=== PATIENT | male | born 1970 | race Caucasian/White ===

== ENCOUNTER 2020-04-25 11:12 | Emergency (ER) | payer OTHER ==
[2020-04-25 11:30] VITALS: BMI 25.1
--- NOTE | 2020-04-25 11:31 | PDOC ---
Rapid Medical Evaluation Chief Complaint: Shortness of Breath Time Seen by Provider: 04/25/20 11:25 Medical Evaluation: Allergies Allergy/AdvReac Type Severity Reaction Status Date / Time No Known Drug Allergies Allergy Verified 02/20/20 12:17 04/25/20 11:29 I have performed a brief in-person evaluation of this patient. The patient presents with a chief complaint of: Sob mostly at rest for 2 weeks. No CP, diaphoresis, n/v, cough, f/c. Has similar sxs 2 years ago and had neg stress test in CT. H/o DM, HTN, GERD Pertinent physical exam findings:BP 164/101, NAD I have ordered the following:ekg/cxr/labs The patient will proceed to the ED for further evaluation Discharge Disposition - Diagnosis SOB (shortness of breath) - Referrals - Patient Instructions - Post Discharge Activity
[2020-04-25 12:08] LABS: BASO % 0.8 % (0-2.0); EOS % 2.9 % (0-4.5); HEMATOCRIT 45.8 % (35.4-49); LYMPH % 34.7 % (8-40); MCH 29.4 pg (25.7-33.7); MCHC 32.7 g/dl (32.0-35.9); MEAN CELL VOLUME 89.9 fl (80-96); MEAN PLT VOLUME 9.2 fl (7.5-11.1); MONO % 8.2 % (3.8-10.2); NEUT % 53.4 % (42.8-82.8); PLATELET COUNT 231 K/MM3 (134-434); RDW 13.4 % (11.9-15.9); WHITE BLOOD COUNT 6.3 K/mm3 (4.0-10.0)
[2020-04-25 12:37] LABS: ALBUMIN 4.2 g/dl (3.4-5.0); ALK PHOS 72 U/L (45-117); ANION GAP 8 MMOL/L (8-16); BILIRUBIN,TOTAL 0.4 mg/dL (0.2-1); BLOOD UREA NITROGEN 15.5 mg/dL (7-18); CALCIUM 9.2 mg/dL (8.5-10.1); CHLORIDE 106 mmol/L (98-107); CO2 26 mmol/L (21-32); GLUCOSE,RANDOM 185 mg/dL (74-106); POTASSIUM 4.3 mmol/L (3.5-5.1); SGOT/AST 15 U/L (15-37); SGPT/ALT 28 U/L (13-61); SODIUM 140 mmol/L (136-145); TOT PROT 7.7 g/dl (6.4-8.2)
[2020-04-25] MEDS ORDERED: amLODIPine BESYLATE 5 MG TABLET (FP) PO ONE (12:38)
[2020-04-25] MEDS ORDERED: amLODIPine BESYLATE 5 MG TABLET (FP) ONE (12:54)
--- NOTE | 2020-04-25 13:55 | PDOC ---
Documentation entered by Gilbert Worley SCRIBE, acting as scribe for Gerardo Finnegan MD. Gerardo Finnegan MD: This documentation has been prepared by the Tate blanchard Nirvannie, SCRIBE, under my direction and personally reviewed by me in its entirety. I confirm that the documentation accurately reflects all work, treatment, procedures, and medical decision making performed by me. History of Present Illness - General Chief Complaint: Shortness of Breath Stated Complaint: SHORTNESS OF BREATH Time Seen by Provider: 04/25/20 11:25 History Source: Patient Exam Limitations: No Limitations - History of Present Illness Initial Comments: 04/25/20 12:51 The patient is a 50 year old male with a significant past medical history of hypertension (changed medications 2 days ago), diabetes, hyperlipidemia who presents to the emergency department with 2 weeks of progressively worsening shortness of breath with minimal exertion and associated orthopnea and generalized fatigue. As per patient, his symptoms onset two weeks ago and occur with minimal exertion, he notes that he normally sleeps lying flat but recently needed to sleep upright. Patient admits to a strong family history of secondary to HI. He denies any fever, chills, recent sick contacts, or recent travel. Allergies: NKDA Family History: Paternal secondary to HI. Multiple cousins secondary to HI in the 50s. Past History - Medical History Allergies/Adverse Reactions: Allergies Allergy/AdvReac Type Severity Reaction Status Date / Time No Known Drug Allergies Allergy Verified 04/25/20 11:30 Home Medications: Ambulatory Orders Glipizide [Glucotrol] 5 mg PO BID 02/01/13 Losartan Potassium [Cozaar -] 50 mg PO DAILY 02/01/13 Multivitamin [Multivitamins] 1 each PO DAILY 02/01/13 Anemia: No Asthma: Yes (SEASONAL) Cancer: No Cardiac Disorders: Yes (murmur) CVA: No COPD: No CHF: No Dementia: No Diabetes: Yes (NIDDM) GI Disorders: Yes (reflux) Disorders: No HTN: Yes Hypercholesterolemia: Yes Liver Disease: No Seizures: No Thyroid Disease: No - Surgical History Abdominal Surgery: No Appendectomy: No Cardiac Surgery: No Cholecystectomy: No Lung Surgery: No Neurologic Surgery: No Orthopedic Surgery: Yes (CELLULITIS LEFT LEG WITH ? OSTEO) - Psycho-Social/Smoking History Smoking History: Never smoked Have you smoked in the past 12 months: No - Substance Abuse Hx (Audit-C & DAST Scrn) How often the patient has a drink containing alcohol: Never Score: In Men: 4 or > Positive; In Women: 3 or > Positive: 0 Screen Result (Pos requires Nsg. Audit-10AR): Negative Review of Systems - Review of Systems Able to Perform ROS?: Yes Comments:: 04/25/20 12:52 CONSTITUTIONAL: No fever, no chills, + fatigue EYES: No visual changes ENT: No ear pain, no sore throat CARDIOVASCULAR: No chest pain, no palpitations RESPIRATORY: No cough, +SOB GI: No abdominal pain, no nausea, no vomiting, no constipation, no diarrhea GENITOURINARY: No dysuria, no frequency, no hematuria MUSKULOSKELETAL: No back pain, no joint pain, no myalgias SKIN: No rash NEURO: No headache *Physical Exam - Vital Signs Last Vital Signs Temp Pulse Resp BP Pulse Ox 98.6 F 58 L 18 164/101 H 100 04/25/20 11:28 04/25/20 11:28 04/25/20 11:28 04/25/20 11:28 04/25/20 11:28 - Physical Exam 04/25/20 13:55 CONSTITUTIONAL: Well-appearing; well-nourished; in no apparent distress HEAD: Normocephalic; atraumatic EYES: PERRL; EOM intact ENMT: External appears normal; normal oropharynx NECK: Supple; non-tender; no cervical lymphadenopathy CARD: Normal S1, S2; no murmurs, rubs, or gallops RESP: Normal chest excursion with respiration; breath sounds clear and equal bilaterally; no wheezes, rhonchi, or rales ABD: Soft, non-distended; non-tender; no palpable organomegaly, no palpable hernias EXT: Normal ROM in all four extremities; non-tender to palpation; distal pulses intact SKIN: Warm, dry, no rash NEURO: No focal neurological deficiencies. Heart Score/ECG Review - History History: Moderately suspicious - Electrocardiogram EKG: Non specific repolarization disturbance - Age Age: 45-65 - Risk Factors Risk Factors Heart Score: Yes Hx Hypercholesterolemia, Yes Hx Hypertension, Yes Hx Diabetes, Yes Positive family hx of cardiac disease Based on the list above the patient has:: >/=3 risk factors or Hx atherosclero tic disease - Troponin Troponin: </= normal limit - Score Heart Score - Total: 5 #1 04/25/20 13:41 EKG performed at: 25 April 2020 at 12:27:16 Vent Rate: 53 bpm WA interval: 170 ms QRS duration: 126 ms QT/QTc: 460/431 ms P-R-T axes: 24 -42 -62 Sinus bradycardia Left axis deviation Right bundle branch block Voltage criteria for left ventricular hypertrophy Cannot rule out septal infarct, age undetermined T wave abnormality, consider inferolateral ischemia Abnormal ECG ED Treatment Course - LABORATORY CBC & Chemistry Diagram: 04/25/20 11:46 04/25/20 11:46 Medical Decision Making - Medical Decision Making 04/25/20 13:53 Patient is a 50-year-old male with history of diabetes, hypertension, strong family history of coronary artery disease who presents with worsening dyspnea, at rest and with minimal exertion for the past several weeks associated with PND and orthopnea. In the ER, patient is awake and alert, nontoxic-appearing. Initially hypertensive. Patient treated with p.o. Norvasc-5 mg. Initial EKG shows normal sinus rhythm, with LVH, left axis deviation, and inverted T waves in 2 3 and aVF which are new when compared to an EKG from December 2019. There are also noted persistent T wave inversions in V3 through V6. Chest x-ray reveals no evidence of infiltrate or effusion, elevated left hemidiaphragm is noted. Will rule out PE with CTA. Will administer aspirin and admit for ACS. 04/25/20 15:59 On reassessment, patient wishes to sign out AMA. Patient understands that he is at high risk of adverse event from acute coronary syndrome. I advised the patient to remain in the hospital, however, he insists on leaving AGAINST MEDICAL ADVICE with outpatient follow-up in 24 hours. 04/25/20 16:22 Patient has been advised that he is at risk of myocardial infarction (heart attack, dangerous arrhythmia and even . Patient is expressed understanding. Patient will follow-up in 24 hours. Discharge - Discharge Information Problems reviewed: Yes Clinical Impression/Diagnosis: Dyspnea on exertion, Acute electrocardiogram changes, SOB (shortness of breath) Condition: Fair Disposition: AGAINST MEDICAL ADVICE - Admission No - Follow up/Referral - Patient Discharge Instructions - Post Discharge Activity
--- NOTE | 2020-04-25 14:39 | EKG ---
Test Reason : Blood Pressure : / mmHG Vent. Rate : 053 BPM Atrial Rate : 053 BPM P-R Int : 170 ms QRS Dur : 126 ms QT Int : 460 ms P-R-T Axes : 024 -42 -62 degrees QTc Int : 431 ms SINUS BRADYCARDIA LEFT AXIS DEVIATION RIGHT BUNDLE BRANCH BLOCK VOLTAGE CRITERIA FOR LEFT VENTRICULAR HYPERTROPHY CANNOT RULE OUT SEPTAL INFARCT , AGE UNDETERMINED T WAVE ABNORMALITY, CONSIDER INFEROLATERAL ISCHEMIA ABNORMAL ECG NO PREVIOUS ECGS AVAILABLE Confirmed by MD Nick, West ([id number]) on 04/25/2020 2:39:13 PM Referred By: Confirmed By:West Romero MD
[2020-04-25] MEDS ORDERED: ASPIRIN 325 MG ENTERIC COATED TABLET (FP) PO ONE (15:23)
[2020-04-25] MEDS ORDERED: ASPIRIN 325 MG ENTERIC COATED TABLET (FP) ONE (15:54)
[2020-04-25 16:02] VITALS: BP 135/80; PULSE 55; TEMP 98.4
== END 2020-04-25 16:29 | disposition left against medical advice (07) ==
LOC: JER 11:12 → UNDOADMIN 15:42 → JERBED 15:42 → JER 16:29
DX: R06.02 Shortness of breath (principal); R94.31 Abnormal electrocardiogram [ECG] [EKG]
CPT/HCPCS: 36415; 71045-TC-FY; 71275-TC; 80053; 82550; 82553; 84484; 85025; 93005; 93010; 99285-25; Q9967

== ENCOUNTER 2020-09-05 02:33 | Emergency (ER) | payer OTHER ==
[2020-09-05 03:11] VITALS: BP 145/102; PULSE 76; TEMP 98.9; BMI 25.0
[2020-09-05 04:02] LABS: HEMATOCRIT 42.7 % (35.4-49); HEMOGLOBIN 14.6 GM/dL (11.7-16.9); MCH 30.2 pg (25.7-33.7); MCHC 34.2 g/dl (32.0-35.9); MEAN CELL VOLUME 88.1 fl (80-96); MEAN PLT VOLUME 10.2 fl (7.5-11.1); PLATELET COUNT 215 K/MM3 (134-434); RBC 4.85 M/mm3 (4.00-5.60); RDW 13.2 % (11.9-15.9); WHITE BLOOD COUNT 6.2 K/mm3 (4.0-10.0)
[2020-09-05] MEDS ORDERED: INSULIN REGULAR HUMAN 100 UNITS/ML *VIAL SQ ONE (05:58)
[2020-09-05 06:03] LABS: ALBUMIN 3.7 g/dl (3.4-5.0); ALK PHOS 113 U/L (45-117); ANION GAP 8 MMOL/L (8-16); BILIRUBIN,TOTAL 0.4 mg/dL (0.2-1); BLOOD UREA NITROGEN 25.1 mg/dL (7-18); CALCIUM 8.7 mg/dL (8.5-10.1); CHLORIDE 101 mmol/L (98-107); CO2 25 mmol/L (21-32); CREATININE 1.2 mg/dL (0.55-1.3); GLUCOSE,RANDOM 391 mg/dL (74-106); SGOT/AST 20 U/L (15-37); SGPT/ALT 32 U/L (13-61); SODIUM 135 mmol/L (136-145); TOT PROT 7.4 g/dl (6.4-8.2)
== END 2020-09-05 06:13 | disposition home or self-care (01) ==
LOC: JER 02:33
DX: R06.02 Shortness of breath (principal); E11.65 Type 2 diabetes mellitus with hyperglycemia
CPT/HCPCS: 36415; 71046-TC-FY; 80053; 82962; 83880; 84484; 85027; 93005; 93010; 99285-25; C9803; U0003

== ENCOUNTER 2020-09-19 16:08 | Emergency (ER) | payer OTHER | END 2020-09-19 19:02 | disposition home or self-care (01) | LOC: JVIRT 16:08 | DX: U07.1 COVID-19 (principal) | CPT/HCPCS: C9803; G2012-GT; U0003 ==

== ENCOUNTER 2020-11-06 11:55 | Emergency (ER) | payer OTHER ==
[2020-11-06 12:24] VITALS: TEMP 97.7; BMI 25.0
[2020-11-06 16:31] VITALS: BP 165/89; PULSE 77
== END 2020-11-06 16:31 | disposition home or self-care (01) ==
LOC: JER 11:55
DX: F41.9 Anxiety disorder, unspecified (principal); Z65.8 Other specified problems related to psychosocial circumstances
CPT/HCPCS: 70450-TC; 93005; 93010; 99284-25

== ENCOUNTER 2021-07-15 10:08 | Observation (INO) | payer OTHER ==
[2021-07-15] MEDS ORDERED: ASPIRIN 81 MG CHEWABLE TABLETS PO ONE (10:30)
[2021-07-15 10:51] LABS: BASO % 0.7 % (0-2.0); EOS % 2.7 % (0-4.5); HEMOGLOBIN 14.5 GM/dL (11.7-16.9); LYMPH % 29.1 % (8-40); MCH 30.5 pg (25.7-33.7); MCHC 34.5 g/dl (32.0-35.9); MEAN CELL VOLUME 88.5 fl (80-96); MEAN PLT VOLUME 8.8 fl (7.5-11.1); MONO % 6.9 % (3.8-10.2); NEUT % 60.6 % (42.8-82.8); PLATELET COUNT 251 10^3/uL (134-434); RBC 4.74 M/mm3 (4.00-5.60); RDW 14.3 % (11.9-15.9); WHITE BLOOD COUNT 6.6 K/mm3 (4.0-10.0)
[2021-07-15 10:52] LABS: INR 0.79 (0.83-1.09); PROTHROMBIN TIME (PATIENT) 9.7 SEC (9.7-13.0)
[2021-07-15 10:54] LABS: ACTIVATED PTT 30.5 SECONDS (25.2-36.5)
[2021-07-15 11:10] LABS: CHLORIDE 106 mmol/L (98-107); SODIUM 141 mmol/L (136-145)
[2021-07-15] MEDS ORDERED: ASPIRIN 81 MG CHEWABLE TABLETS ONE (11:15)
[2021-07-15 11:16] LABS: ALBUMIN 3.8 g/dl (3.4-5.0); ANION GAP 7 MMOL/L (8-16); BLOOD UREA NITROGEN 13.8 mg/dL (7-18); CALCIUM 8.9 mg/dL (8.5-10.1); CO2 28 mmol/L (21-32); GLUCOSE,RANDOM 251 mg/dL (74-106); MAGNESIUM 2.2 mg/dL (1.8-2.4)
[2021-07-15 11:19] LABS: CREATININE 1.1 mg/dL (0.55-1.3); SGPT/ALT 37 U/L (13-61)
[2021-07-15 11:21] LABS: BILIRUBIN,TOTAL 0.4 mg/dL (0.2-1); SGOT/AST 23 U/L (15-37); TOT PROT 7.9 g/dl (6.4-8.2)
[2021-07-15 11:22] LABS: ALK PHOS 97 U/L (45-117)
[2021-07-15 12:47] LABS: N-TERMINAL BNP 36.8 pg/ml (5-125)
[2021-07-15] MEDS ORDERED: ALBUTEROL SO4 HFA INHALER IH PRN (14:43)
[2021-07-15] MEDS ORDERED: ALBUTEROL SO4 0.083% IH SOL 2.5 MG/3 ML VIAL.NEB. NEB PRN (14:43)
[2021-07-15] MEDS ORDERED: ATORVASTATIN CA 40 MG TABLET (FP) PO SCH (22:00)
[2021-07-15] MEDS: OMEGA-3 ACID ETHYL ESTERS (FATTY-ACIDS) 1 GM CAPSULE (FP) PO SCH (22:34)
[2021-07-15] MEDS: CARVEDILOL 3.125 MG TABLET (FP) PO SCH (22:35)
[2021-07-15] MEDS: BUDESONIDE/FORMETEROL FUMARATE 160/4.5 mcg INHALER IH SCH (23:14)
[2021-07-15] MEDS ORDERED: INSULIN (NOVOLOG) ASPART 100 UNITS/ML 10ML VIAL SQ ONE (23:35)
[2021-07-16 00:27] VITALS: BMI 28.7
[2021-07-16] MEDS: INSULIN (NOVOLOG) ASPART 100 UNITS/ML 10ML VIAL SQ SCH ×3 (06:30→18:01)
[2021-07-16 09:05] LABS: CHOLESTEROL 134 mg/dL (50-200); TRIGLYCERIDES 186 mg/dL (0-150)
[2021-07-16 09:07] LABS: LDL CHOLESTEROL (ONLY SJRH) 59 mg/dL (5-100)
[2021-07-16 09:08] LABS: HDL CHOLESTEROL 48 mg/dL (40-60)
[2021-07-16] MEDS: ENOXAPARIN NA (PORCINE) 40 MG/0.4 ML DISP.SYRIN SQ SCH (09:45)
[2021-07-16] MEDS: VALSARTAN 160 MG TABLET PO SCH (09:45)
[2021-07-16] MEDS: OMEGA-3 ACID ETHYL ESTERS (FATTY-ACIDS) 1 GM CAPSULE (FP) PO SCH ×2 (09:46→21:56)
[2021-07-16] MEDS: CARVEDILOL 3.125 MG TABLET (FP) PO SCH (09:46)
[2021-07-16] MEDS: amLODIPine BESYLATE 10 MG TABLET (FP) PO SCH (09:46)
[2021-07-16] MEDS: BUDESONIDE/FORMETEROL FUMARATE 160/4.5 mcg INHALER IH SCH ×2 (09:47→21:55)
[2021-07-16] MEDS ORDERED: PATIENT'S OWN MEDICATION (NON-FORMULARY) (Amlodipine/Valsartan [Exforge 10-160 Mg Tablet] PO SCH (10:00)
[2021-07-16] MEDS: CARVEDILOL 6.25 MG TABLET (FP) PO SCH (21:56)
[2021-07-16] MEDS ORDERED: INSULIN (LEVEMIR) 100 UNITS/ML UNITS SQ SCH (22:00)
[2021-07-17] MEDS: INSULIN (NOVOLOG) ASPART 100 UNITS/ML 10ML VIAL SQ SCH ×3 (06:51→18:48)
[2021-07-17] MEDS: CARVEDILOL 6.25 MG TABLET (FP) PO SCH ×2 (09:53→21:35)
[2021-07-17] MEDS: OMEGA-3 ACID ETHYL ESTERS (FATTY-ACIDS) 1 GM CAPSULE (FP) PO SCH ×2 (09:53→21:35)
[2021-07-17] MEDS: amLODIPine BESYLATE 10 MG TABLET (FP) PO SCH (09:54)
[2021-07-17] MEDS: ENOXAPARIN NA (PORCINE) 40 MG/0.4 ML DISP.SYRIN SQ SCH (09:54)
[2021-07-17] MEDS: VALSARTAN 160 MG TABLET PO SCH (09:54)
[2021-07-17] MEDS: BUDESONIDE/FORMETEROL FUMARATE 160/4.5 mcg INHALER IH SCH ×2 (09:55→21:39)
[2021-07-17 16:56] LABS: PH,URINE 5.5 (5.0-8.0); URINE APPEARANCE CLEAR; URINE BILIRUBIN NEGATIVE (NEGATIVE); URINE COLOR YELLOW; URINE GLUCOSE (UA) 3+ (NEGATIVE); URINE KETONE NEGATIVE (NEGATIVE); URINE LEUK ESTERASE NEGATIVE (NEGATIVE); URINE NITRITE NEGATIVE (NEGATIVE); URINE PROTEIN NEGATIVE (NEGATIVE); URINE UROBILINOGEN 0.2 mg/dL (0.2-1.0)
[2021-07-17] MEDS: INSULIN (LEVEMIR) 100 UNITS/ML UNITS SQ SCH (21:37)
[2021-07-18] MEDS: INSULIN (NOVOLOG) ASPART 100 UNITS/ML 10ML VIAL SQ SCH ×3 (06:04→17:04)
[2021-07-18] MEDS ORDERED: PT OWN MED DRAWER 7, Y5N ONE (10:17)
[2021-07-18] MEDS: VALSARTAN 160 MG TABLET PO SCH ×2 (11:00→18:12)
[2021-07-18] MEDS: ENOXAPARIN NA (PORCINE) 40 MG/0.4 ML DISP.SYRIN SQ SCH (11:00)
[2021-07-18] MEDS: POLYETHYLENE GLYCOL (HEALTHYLAX) 3350 17 GM PACKET PO SCH (11:00)
[2021-07-18] MEDS: OMEGA-3 ACID ETHYL ESTERS (FATTY-ACIDS) 1 GM CAPSULE (FP) PO SCH ×2 (11:00→21:09)
[2021-07-18] MEDS: BUDESONIDE/FORMETEROL FUMARATE 160/4.5 mcg INHALER IH SCH ×2 (11:00→21:09)
[2021-07-18] MEDS: amLODIPine BESYLATE 10 MG TABLET (FP) PO SCH ×2 (11:00→18:12)
[2021-07-18] MEDS: CARVEDILOL 6.25 MG TABLET (FP) PO SCH ×2 (11:00→21:09)
[2021-07-18] MEDS: INSULIN (LEVEMIR) 100 UNITS/ML UNITS SQ SCH (21:12)
[2021-07-19] MEDS: INSULIN (NOVOLOG) ASPART 100 UNITS/ML 10ML VIAL SQ SCH ×2 (06:29→11:17)
[2021-07-19] MEDS: OMEGA-3 ACID ETHYL ESTERS (FATTY-ACIDS) 1 GM CAPSULE (FP) PO SCH (10:29)
[2021-07-19] MEDS: CARVEDILOL 6.25 MG TABLET (FP) PO SCH (10:29)
[2021-07-19] MEDS: VALSARTAN 160 MG TABLET PO SCH (10:30)
[2021-07-19] MEDS: BUDESONIDE/FORMETEROL FUMARATE 160/4.5 mcg INHALER IH SCH (10:30)
[2021-07-19] MEDS: POLYETHYLENE GLYCOL (HEALTHYLAX) 3350 17 GM PACKET PO SCH (10:30)
[2021-07-19] MEDS: ENOXAPARIN NA (PORCINE) 40 MG/0.4 ML DISP.SYRIN SQ SCH (10:30)
[2021-07-19] MEDS: amLODIPine BESYLATE 10 MG TABLET (FP) PO SCH (10:30)
[2021-07-19 11:10] VITALS: BP 136/90; PULSE 51; TEMP 97.8
[2021-07-19 18:07] LABS: ATYPICAL pANCA <1:20 titer (Neg:<1:20); C-ANCA <1:20 titer (Neg:<1:20)
== END 2021-07-19 18:32 | disposition home or self-care (01) ==
LOC: JER 10:08 → UNDOADMOB 12:33 → INTOOBSV 12:33 → JERBED 12:33 → J4W 21:15
PROVIDERS: ADMIT Internal Medicine; ATTEND Internal Medicine
PROC: 3E013VG Introduction of Insulin into Subcutaneous Tissue, Percutaneous Approach (ICD-10-PCS; principal; 2021-07-15)
DX: R06.02 Shortness of breath (principal); R07.9 Chest pain, unspecified; I10 Essential (primary) hypertension; E78.00 Pure hypercholesterolemia, unspecified; E11.9 Type 2 diabetes mellitus without complications; M62.82 Rhabdomyolysis; Z79.4 Long term (current) use of insulin; R79.89 Other specified abnormal findings of blood chemistry; R01.1 Cardiac murmur, unspecified; Z88.8 Allergy status to other drugs, medicaments and biological substances
CPT/HCPCS: 36415; 71045-TC-FY; 71250-TC; 74176-TC; 80053; 80061; 81003; 82550; 82553; 82962; 83036; 83520; 83735; 83880; 84443; 84484; 85025; 85379; 85610; 85730; 86256; 86850; 86900; 86901; 87086; 93005; 93010; 93306-TC; 93351; 96372; 99285-25; C9803; G0378; U0003; U0005

== ENCOUNTER 2023-05-03 07:55 | Emergency (ER) | payer OTHER ==
[2023-05-03 08:03] VITALS: BP 158/94; PULSE 75; RESP 18; TEMP 98.4; BMI 27.3
[2023-05-03] MEDS ORDERED: LIDOCAINE VISCOUS 2% ORAL/TOP 15 ML UNIT-DOSE CUP MM ONE (08:37)
[2023-05-03 09:21] LABS: BASO % 0.8 % (0-2.0); HEMATOCRIT 38.5 % (35.4-49); HEMOGLOBIN 12.5 GM/dL (11.7-16.9); LYMPH % 23.8 % (8-40); MCH 28.4 pg (25.7-33.7); MCHC 32.4 g/dl (32.0-35.9); MEAN CELL VOLUME 87.7 fl (80-96); MEAN PLT VOLUME 9.2 fl (7.5-11.1); MONO % 7.2 % (3.8-10.2); NEUT % 65.2 % (42.8-82.8); PLATELET COUNT 279 10^3/uL (134-434); RBC 4.39 M/mm3 (4.00-5.60); RDW 13.2 % (11.9-15.9); WHITE BLOOD COUNT 7.2 K/mm3 (4.0-10.0)
[2023-05-03] MEDS ORDERED: MAG HYDROX/AL HYDROX/SIMETH 30 ML UNIT-DOSE CUP PO ONE (09:22)
[2023-05-03] MEDS ORDERED: FAMOTIDINE 20 MG/50 ML IVPB 20 MG/50 ML MG IVPB ONE ×2 (09:22→09:38)
[2023-05-03] MEDS ORDERED: MAG HYDROX/AL HYDROX/SIMETH 30 ML UNIT-DOSE CUP ONE (09:37)
[2023-05-03 09:59] LABS: POTASSIUM 4.5 mmol/L (3.5-5.1)
[2023-05-03 10:03] LABS: CALCIUM 9.1 mg/dL (8.5-10.1)
[2023-05-03 10:04] LABS: ALBUMIN 3.5 g/dl (3.4-5.0); BLOOD UREA NITROGEN 26.6 mg/dL (7-18)
[2023-05-03 10:07] LABS: CREATININE 1.3 mg/dL (0.55-1.3)
[2023-05-03 10:08] LABS: BILIRUBIN,TOTAL 0.6 mg/dL (0.2-1); TOT PROT 7.4 g/dl (6.4-8.2)
== END 2023-05-03 13:52 | disposition left against medical advice (07) ==
LOC: JER 07:55
PROC: 3E033GC Introduction of Other Therapeutic Substance into Peripheral Vein, Percutaneous Approach (ICD-10-PCS; principal; 2023-05-03)
DX: R09.89 Other specified symptoms and signs involving the circulatory and respiratory systems (principal); R07.89 Other chest pain; R11.2 Nausea with vomiting, unspecified; R13.10 Dysphagia, unspecified; R06.00 Dyspnea, unspecified
CPT/HCPCS: 36415; 70360-TC-FY; 70490-TC; 71046-TC-FY; 80053; 84484; 85025; 93005; 93010; 99285-25

== ENCOUNTER 2024-02-03 15:13 | Inpatient (IN) | payer OTHER ==
[2024-02-03 16:23] LABS: BASO % 0.8 % (0-2.0); EOS % 2.4 % (0-4.5); HEMATOCRIT 36.8 % (35.4-49); HEMOGLOBIN 12.4 GM/dL (11.7-16.9); LYMPH % 19.6 % (8-40); MCH 29.1 pg (25.7-33.7); MCHC 33.7 g/dl (32.0-35.9); MEAN CELL VOLUME 86.5 fl (80-96); MEAN PLT VOLUME 8.8 fl (7.5-11.1); MONO % 6.8 % (3.8-10.2); NEUT % 70.4 % (42.8-82.8); PLATELET COUNT 310 10^3/uL (134-434); RBC 4.25 M/mm3 (4.00-5.60); RDW 14.2 % (11.9-15.9); WHITE BLOOD COUNT 6.6 K/mm3 (4.0-10.0)
[2024-02-03 16:28] LABS: INR 0.98 (0.83-1.09); PROTHROMBIN TIME (PATIENT) 11.4 SEC (9.7-13.0)
[2024-02-03 16:31] LABS: ACTIVATED PTT 32.6 SECONDS (25.2-36.5)
[2024-02-03 16:46] LABS: VENOUS BASE EXCESS 0.1 mmol/L (-2-2); VENOUS PCO2 47.4 mmHg (38-52); VENOUS PH 7.351 (7.310-7.410)
[2024-02-03 16:51] LABS: CHLORIDE 108 mmol/L (98-107); SODIUM 141 mmol/L (136-145)
[2024-02-03 16:53] LABS: ANION GAP 4 mmol/L (4-13); BLOOD UREA NITROGEN 22.7 mg/dL (7-18); CO2 29 mmol/L (21-32); GLUCOSE,RANDOM 166 mg/dL (74-106); MAGNESIUM 1.7 mg/dL (1.8-2.4)
[2024-02-03 16:54] LABS: ALBUMIN 3.6 g/dl (3.4-5.0)
[2024-02-03 16:57] LABS: CREATININE 1.6 mg/dL (0.55-1.3); SGOT/AST 18 U/L (15-37); SGPT/ALT 23 U/L (13-61)
[2024-02-03 16:58] LABS: BILIRUBIN,TOTAL 0.5 mg/dL (0.2-1); TOT PROT 7.4 g/dl (6.4-8.2)
[2024-02-03 16:59] LABS: ALK PHOS 85 U/L (45-117)
[2024-02-03 17:02] LABS: N-TERMINAL BNP 124.6 pg/ml (5-125)
[2024-02-03] MEDS ORDERED: MAGNESIUM SULFATE IN WATER 2 GM/50 ML IVPB IVPB ONE (20:10)
[2024-02-03 20:11] LABS: CHOLESTEROL 115 mg/dL (50-200)
[2024-02-03 20:13] LABS: LDL CHOLESTEROL (ONLY SJRH) 40 mg/dL (5-100)
[2024-02-03 20:14] LABS: HDL CHOLESTEROL 59 mg/dL (40-60)
[2024-02-03] MEDS: MAGNESIUM SULF 50% (8.12 MEQ/2 ML-1 GM VIAL) IVPB ONE (20:28)
[2024-02-03] MEDS ORDERED: HEPARIN NA (PORCINE) 5,000 UNITS/ML 1ML VIAL ONE (23:05)
[2024-02-04] MEDS: HEPARIN NA (PORCINE) 5,000 UNITS/ML 1ML VIAL SQ SCH (00:44)
[2024-02-04 01:42] VITALS: BMI 28.1
[2024-02-04] MEDS: SODIUM CHLORIDE 1,000 ML IV SCH (02:30)
[2024-02-04] MEDS: INSULIN ASPART SLIDING SCALE (NOVOLOG) 1 VIAL SQ SCH (06:08)
[2024-02-04 08:17] LABS: HEMATOCRIT 34.6 % (35.4-49); HEMOGLOBIN 11.8 GM/dL (11.7-16.9); MCH 29.8 pg (25.7-33.7); MCHC 34.2 g/dl (32.0-35.9); MEAN CELL VOLUME 87.1 fl (80-96); MEAN PLT VOLUME 9.3 fl (7.5-11.1); PLATELET COUNT 297 10^3/uL (134-434); RBC 3.97 M/mm3 (4.00-5.60); RDW 14.1 % (11.9-15.9)
[2024-02-04 08:18] LABS: POTASSIUM 4.2 mmol/L (3.5-5.1)
[2024-02-04 08:23] LABS: ALBUMIN 3.2 g/dl (3.4-5.0); CALCIUM 8.9 mg/dL (8.5-10.1); MAGNESIUM 2.4 mg/dL (1.8-2.4)
[2024-02-04 08:24] LABS: BLOOD UREA NITROGEN 21.4 mg/dL (7-18)
[2024-02-04 08:26] LABS: PHOSPHOROUS 3.6 mg/dL (2.5-4.9)
[2024-02-04 08:27] LABS: CREATININE 1.3 mg/dL (0.55-1.3)
[2024-02-04 08:28] LABS: BILIRUBIN,TOTAL 0.6 mg/dL (0.2-1); TOT PROT 6.7 g/dl (6.4-8.2)
[2024-02-04] MEDS: TAMSULOSIN HCL 0.4 MG CAP PO SCH (09:26)
[2024-02-04] MEDS: amLODIPine BESYLATE 10 MG TABLET (FP) PO SCH (09:26)
[2024-02-04] MEDS: ASPIRIN COATED 81 MG TABLET.EC PO SCH (09:26)
[2024-02-04] MEDS ORDERED: PATIENT'S OWN MEDICATION (NON-FORMULARY) (Amlodipine/Valsartan [Exforge 10-160 Mg Tablet] PO SCH (10:00)
[2024-02-04] MEDS ORDERED: INSULIN (NOVOLOG) ASPART 100 UNITS/ML 10ML VIAL ONE (12:06)
[2024-02-04] MEDS ORDERED: ALBUTEROL SO4 0.083% IH SOL 2.5 MG/3 ML VIAL.NEB. NEB PRN (12:43)
[2024-02-04 12:57] LABS: PH,URINE 6.5 (5.0-8.0); URINE APPEARANCE CLEAR; URINE BILIRUBIN NEGATIVE (NEGATIVE); URINE COLOR YELLOW; URINE GLUCOSE (UA) 4+ (NEGATIVE); URINE KETONE NEGATIVE (NEGATIVE)
[2024-02-04 12:58] LABS: EPI CELLS 5 /uL (0-25.1); HYALINE CASTS 0 /uL (0-3.1); URINE BACTERIA 1 /uL (0-1359); URINE LEUK ESTERASE NEGATIVE (NEGATIVE); URINE NITRITE NEGATIVE (NEGATIVE); URINE PROTEIN 3+ (NEGATIVE); URINE RBC 37 /uL (0-23.9); URINE WBC 6 /uL (0-25.8)
[2024-02-04 13:25] LABS: URINE UREA NITROGEN 290 mg/dL (350-1000)
[2024-02-04] MEDS: VALSARTAN 160 MG TABLET PO SCH (14:17)
[2024-02-04] MEDS: PATIENT'S OWN MEDICATION (NON-FORMULARY) (Insulin Lispro [Humalog Kwikpen U-100] 100 UNIT/ SQ SCH (19:28)
[2024-02-04] MEDS: ATORVASTATIN CA 40 MG TABLET (FP) PO SCH (21:23)
[2024-02-04] MEDS: INSULIN (LEVEMIR) 100 UNITS/ML UNITS SQ SCH (21:23)
[2024-02-04] MEDS ORDERED: ATORVASTATIN CA 40 MG TABLET (FP) PO SCH (22:00)
[2024-02-04] MEDS ORDERED: INSULIN (LEVEMIR) 100 UNITS/ML UNITS SQ SCH (22:00)
[2024-02-05 07:31] LABS: POTASSIUM 4.1 mmol/L (3.5-5.1)
[2024-02-05 07:32] LABS: BASO % 0.6 % (0-2.0); EOS % 3.6 % (0-4.5); HEMATOCRIT 31.4 % (35.4-49); HEMOGLOBIN 10.8 GM/dL (11.7-16.9); LYMPH % 18.9 % (8-40); MCH 29.4 pg (25.7-33.7); MCHC 34.5 g/dl (32.0-35.9); MEAN CELL VOLUME 85.2 fl (80-96); MEAN PLT VOLUME 8.8 fl (7.5-11.1); MONO % 8.5 % (3.8-10.2); NEUT % 68.4 % (42.8-82.8); PLATELET COUNT 256 10^3/uL (134-434); RBC 3.68 M/mm3 (4.00-5.60); RDW 13.6 % (11.9-15.9)
[2024-02-05 07:34] LABS: CALCIUM 8.4 mg/dL (8.5-10.1)
[2024-02-05 07:36] LABS: ALBUMIN 2.9 g/dl (3.4-5.0); BLOOD UREA NITROGEN 25.2 mg/dL (7-18); MAGNESIUM 2.3 mg/dL (1.8-2.4)
[2024-02-05 07:39] LABS: CREATININE 1.6 mg/dL (0.55-1.3); PHOSPHOROUS 4.2 mg/dL (2.5-4.9)
[2024-02-05 07:40] LABS: BILIRUBIN,TOTAL 0.4 mg/dL (0.2-1); TOT PROT 6.1 g/dl (6.4-8.2)
[2024-02-05] MEDS ORDERED: REGADENOSON 0.4 MG/5 ML PRE-FILLED SYRINGE IVPUSH ONE (11:18)
[2024-02-05] MEDS: REGADENOSON 0.4 MG/5 ML PRE-FILLED SYRINGE IVPUSH ONE (14:03)
[2024-02-05] MEDS ORDERED: INSULIN (LEVEMIR) 100 UNITS/ML UNITS SQ ONE (20:42)
[2024-02-05] MEDS: LABETALOL HCL 20 MG/4 ML VIAL IVPUSH ONE (22:05)
[2024-02-05] MEDS: LABETALOL HCL 5 MG/1 ML (100MG/20 ML VIAL) IVPUSH ONE (22:17)
[2024-02-06 08:28] LABS: POTASSIUM 4.2 mmol/L (3.5-5.1)
[2024-02-06 08:29] LABS: BASO % 0.8 % (0-2.0); EOS % 2.6 % (0-4.5); HEMOGLOBIN 10.5 GM/dL (11.7-16.9); LYMPH % 19.1 % (8-40); MCH 29.3 pg (25.7-33.7); MCHC 33.9 g/dl (32.0-35.9); MEAN CELL VOLUME 86.6 fl (80-96); MEAN PLT VOLUME 9.3 fl (7.5-11.1); MONO % 10.5 % (3.8-10.2); PLATELET COUNT 264 10^3/uL (134-434); RBC 3.58 M/mm3 (4.00-5.60); RDW 13.4 % (11.9-15.9); WHITE BLOOD COUNT 6.8 K/mm3 (4.0-10.0)
[2024-02-06 08:36] LABS: CALCIUM 8.4 mg/dL (8.5-10.1)
[2024-02-06 08:37] LABS: BLOOD UREA NITROGEN 31.7 mg/dL (7-18); MAGNESIUM 2.4 mg/dL (1.8-2.4)
[2024-02-06 08:40] LABS: BILIRUBIN,TOTAL 0.4 mg/dL (0.2-1); CREATININE 1.8 mg/dL (0.55-1.3); PHOSPHOROUS 4.8 mg/dL (2.5-4.9)
[2024-02-06] MEDS: SODIUM CHLORIDE 0.45% 1,000 ML IV SCH ×2 (11:30→20:46)
[2024-02-06] MEDS: hydrALAZINE HCL 10 MG TABLET PO SCH (23:29)
[2024-02-07] MEDS ORDERED: INSULIN (NOVOLOG) ASPART 100 UNITS/ML 10ML VIAL ONE (03:50)
[2024-02-07 08:53] LABS: CALCIUM 8.4 mg/dL (8.5-10.1)
[2024-02-07 08:54] LABS: ALBUMIN 2.9 g/dl (3.4-5.0); BLOOD UREA NITROGEN 25.1 mg/dL (7-18); MAGNESIUM 2.4 mg/dL (1.8-2.4)
[2024-02-07 08:57] LABS: CREATININE 1.7 mg/dL (0.55-1.3); PHOSPHOROUS 3.9 mg/dL (2.5-4.9)
[2024-02-07 08:58] LABS: BILIRUBIN,TOTAL 0.6 mg/dL (0.2-1)
[2024-02-07 08:59] LABS: TOT PROT 6.1 g/dl (6.4-8.2)
[2024-02-07] MEDS ORDERED: VALSARTAN 80 MG TABLET PO SCH (10:00)
[2024-02-07] MEDS: amLODIPine BESYLATE 5 MG TABLET (FP) PO SCH (16:49)
[2024-02-07] MEDS: hydrALAZINE HCL 25 MG TABLET (FP) PO SCH (16:49)
[2024-02-08 07:28] LABS: BASO % 0.8 % (0-2.0); EOS % 2.8 % (0-4.5); HEMATOCRIT 29.3 % (35.4-49); HEMOGLOBIN 10.1 GM/dL (11.7-16.9); LYMPH % 20.8 % (8-40); MCH 29.9 pg (25.7-33.7); MCHC 34.4 g/dl (32.0-35.9); MEAN CELL VOLUME 86.8 fl (80-96); MEAN PLT VOLUME 8.9 fl (7.5-11.1); MONO % 8.8 % (3.8-10.2); NEUT % 66.8 % (42.8-82.8); PLATELET COUNT 238 10^3/uL (134-434); RBC 3.37 M/mm3 (4.00-5.60); RDW 13.8 % (11.9-15.9); WHITE BLOOD COUNT 7.3 K/mm3 (4.0-10.0)
[2024-02-08 07:59] LABS: CALCIUM 8.5 mg/dL (8.5-10.1)
[2024-02-08 08:00] LABS: ALBUMIN 2.9 g/dl (3.4-5.0); BLOOD UREA NITROGEN 27.3 mg/dL (7-18); MAGNESIUM 2.2 mg/dL (1.8-2.4)
[2024-02-08 08:03] LABS: CREATININE 1.6 mg/dL (0.55-1.3)
[2024-02-08 08:04] LABS: PHOSPHOROUS 4.2 mg/dL (2.5-4.9)
[2024-02-08 08:06] LABS: BILIRUBIN,TOTAL 0.5 mg/dL (0.2-1); TOT PROT 6.2 g/dl (6.4-8.2)
[2024-02-08 08:09] LABS: POTASSIUM 4.6 mmol/L (3.5-5.1)
[2024-02-09] MEDS: SODIUM CHLORIDE 1,000 ML IV SCH (09:26)
[2024-02-09 19:46] VITALS: RESP 18
[2024-02-09 20:27] VITALS: BP 150/83; PULSE 63; TEMP 98.2
== END 2024-02-09 21:00 | disposition short-term general hospital (02) | DRG 203 ==
LOC: JER 15:13 → UNDOADMOB 19:38 → JERBED 19:38 → INTOOBSV 21:04 → OBSVTOIN 21:04 → JERBED 02-04 01:32 → J4W 02-04 01:32 → JERBED 02-04 09:09 → OBSVTOIN 02-05 15:08
PROVIDERS: ADMIT Internal Medicine; ATTEND Internal Medicine
DX: R07.89 Other chest pain (principal); I10 Essential (primary) hypertension; E11.9 Type 2 diabetes mellitus without complications; J45.909 Unspecified asthma, uncomplicated; E78.5 Hyperlipidemia, unspecified; R94.39 Abnormal result of other cardiovascular function study; N17.9 Acute kidney failure, unspecified; R91.1 Solitary pulmonary nodule; M62.82 Rhabdomyolysis; I95.1 Orthostatic hypotension; K59.00 Constipation, unspecified; I35.1 Nonrheumatic aortic (valve) insufficiency
CPT/HCPCS: 0241U-QW; 36415; 71045-TC-FY; 71275-TC; 76775-TC; 78452-TC; 80053; 80061; 80307; 81003; 82550; 82553; 82803; 82962; 83036; 83605; 83735; 83880; 83935; 84100; 84300; 84439; 84443; 84484; 84540; 85025; 85027; 85379; 85610; 85730; 93005; 93010; 93017; 93306-TC; 99285-25; A9502; G0378; J1644; J2785; Q9967